=== PATIENT | female | born 1990 | race Caucasian/White ===

== ENCOUNTER 2018-07-02 11:08 | Emergency (ER) | payer SELFPAY ==
[~2018-07-02] VITALS: Ht 157.5 cm; Wt 113.4 kg
--- NOTE | 2018-07-02 11:14 | ED Cough/URI ---
General Stated Complaint: COUGH History of Present Illness Date Seen by Provider: Jul 02, 2018 Time Seen by Provider: 11:40 Initial Comments 2 mo of cough , cant get anything up mostly dry. had a fever a couple weeks back. went to urgent care and got steroid shot this am. she has been using otc sinus agents with minimal relief. she has been trying to hold off for financial reasons but it is becoming more severe so she came to er occasionally uses control of urine when coughing. Allergies and Home Medications Allergies Coded Allergies: No Known Drug Allergies (Unverified , 07/02/18) Patient Home Medication List Home Medication List Reviewed: Yes Review of Systems Review of Systems Constitutional: fever Respiratory: see HPI Cardiovascular: no symptoms reported Gastrointestinal: no symptoms reported All Other Systems Reviewed Negative Unless Noted: Yes Past Situwdj-Utvknx-Nuyolh Hx Past Med/Social Hx: Reviewed Nursing Past Med/Soc Hx Physical Exam Capillary Refill : Height: '" Weight: lbs. oz. kg; BMI Method: General Appearance: WD/WN, no apparent distress HEENT: PERRL/EOMI, normal ENT inspection, pharynx normal Respiratory: other (wheezing noted b/l. speaking full sentences) Cardiovascular: regular rate, rhythm, no edema, no gallop Gastrointestinal: non tender Progress/Results/Core Measures Suspected Sepsis SIRS Temperature: Pulse: Respiratory Rate: Blood Pressure / Mean: Results/Orders My Orders Orders - DEMETRIUS CANO MD Albuterol/Ipra Inhalation Soln (Duoneb I (07/02/18 11:45) Svn Small Volume Nebulizer (07/02/18 11:38) Chest Pa/Lat (2 View) (07/02/18 11:38) Medications Given in ED Current Medications Medications Dose Ordered Sig/Sanjay Route Start Time Stop Time Status Last Admin Dose Admin Albuterol/ Ipratropium 3 ml ONCE ONCE INH 07/02/18 11:45 07/02/18 11:46 DC 07/02/18 11:55 3 ML Vital Signs/I&O Capillary Refill : Progress Note : Progress Note cxr clear rad x two months likely viral pt looks pretty good. vitals reviewed rx: given timeframe trial of abx, prednisone and albuterol pt is workin on getting primary care encouraged f/u if not improving PA and lateral views of the chest are obtained. COMPARISON: No previous study is available for comparison at this time. FINDINGS: Heart size and pulmonary vasculature are within normal limits, and the lungs are clear, bilaterally. IMPRESSION: Unremarkable chest. Dictated on workstation # [id number] Dict: 07/02/18 1152 Trans: 07/02/18 1156 [id number] Interpreted by: NATALIE YUEN MD Electronically signed by: Departure Impression Primary Impression: Bronchitis Disposition: 01 HOME, SELF-CARE Condition: Stable Departure-Patient Inst. Decision time for Depature: 12:12 Referrals: NO,LOCAL PHYSICIAN (PCP/Family) Primary Care Physician Patient Instructions: Acute Bronchitis in Adults Scripts Doxycycline Hyclate (Doxycycline Hyclate) 100 Mg Tablet 100 MG PO BID, #20 TAB 0 Refills Prov: DEMETRIUS CANO MD 07/02/18 Albuterol Sulfate (PROAIR HFA) 1 Puff Puff 2 PUFF IH Q4H PRN for SHORTNESS OF BREATH, #1 PUFF 0 Refills 1 PUFF = 90 MCG Prov: DEMETRIUS CANO MD 07/02/18 Prednisone (Prednisone) 20 Mg Tab 40 MG PO DAILY, #10 TAB 0 Refills Prov: DEMETRIUS CANO MD 07/02/18 Work/School Note: Work Release Form Date Seen in the Emergency Department: Jul 02, 2018 Return to Work: Jul 05, 2018 Restrictions: No Restrictions DEMETRIUS CANO MD Jul 02, 2018 11:14
[2018-07-02] MEDS ORDERED: RT-ALBUTEROL/IPRATROPIUM 3 ML (DUONEB) VIAL INH ONE (11:45)
--- NOTE | 2018-07-02 11:56 | Diagnostic Imaging Report ---
INDICATION: Cough. PA and lateral views of the chest are obtained. COMPARISON: No previous study is available for comparison at this time. FINDINGS: Heart size and pulmonary vasculature are within normal limits, and the lungs are clear, bilaterally. IMPRESSION: Unremarkable chest. Dictated by: Dictated on workstation # [id number]
[2018-07-02] MEDS ORDERED: RT-ALBUINH IH (12:14)
[2018-07-02] MEDS ORDERED: PRD20T PO (12:14)
[2018-07-02] MEDS ORDERED: DOXY100T2 PO (12:14)
[2018-07-02 12:48] VITALS: BP 129/67
== END 2018-07-02 12:48 | disposition home or self-care (01) ==
LOC: ER FS 11:14
DX: J40 Bronchitis, not specified as acute or chronic (principal)
CPT/HCPCS: 71046